=== PATIENT | male | born 1985 | race Caucasian/White ===

== ENCOUNTER → 2018-10-23 14:20 | Outpatient (CLI) | payer OTHER, SELFPAY ==
--- NOTE | 2018-10-23 | DI.RAD.S_ITS ---
PROCEDURE: XR LUMBAR SPINE 2-3V INDICATIONS: LOW BACK PAIN TECHNIQUE: 3 views of the lumbar spine were acquired. COMPARISON: None. FINDINGS: Bones: 5 [id number] vertebrae are present. There is minimal multilevel retrolisthesis throughout the lumbar spine as well as minimal foraminal narrowing at L5-S1.. No vertebral body compression fractures. No suspicious bony lesions. Soft tissues: Overlying bowel gas pattern is normal. No suspicious soft tissue calcifications. IMPRESSION: Minimal early degenerative changes notable at L5-S1. Dictated by: Anitha Hussein M.D. on 10/23/2018 at 14:53 Approved by: Anitha Hussein M.D. on 10/23/2018 at 14:54
--- NOTE | 2018-10-23 | DI.RAD.S_ITS ---
PROCEDURE: XR THORACIC SPINE 2V INDICATIONS: LOW BACK PAIN TECHNIQUE: 2 views of the thoracic spine were acquired. COMPARISON: None. FINDINGS: Bones: No fractures or dislocations. No suspicious bony lesions. 12 pairs of ribs are noted, and appear intact where visualized. Soft tissues: No paravertebral stripe thickening. IMPRESSION: Unremarkable exam. Dictated by: Anitha Hussein M.D. on 10/23/2018 at 14:52 Approved by: Anitha Hussein M.D. on 10/23/2018 at 14:53
== END ==
PROVIDERS: Visit Provider Student in an Organized Health Care Education/Training Program
DX: M54.5 Low back pain (principal)
CPT/HCPCS: 72070; 72100